=== PATIENT | male | born 1980 | race African-American/Black ===

== ENCOUNTER 2016-12-16 14:14 | Emergency (ER) | payer OTHER ==
[~2016-12-16] VITALS: Ht 185.4 cm; Wt 68.5 kg
[~2016-12-16 14:14] MED LIST: FLEXERIL10 MG PO; HYDROCODON-ACE1 EAC7; IBUPROFEN800 MG; LIDODERM 5% P1 PATCH TD; Levaquin PO; NAPROSYN500 MG PO; NO HOME; NO HOME MEDS; OXYCODONE HCL5 MG PO; PERCOCET 5/31 TABLET PO; PriLOSEC PO; ULTRAM50 MG PO
[2016-12-16] MEDS ORDERED: MOTRIN800 MG PO (17:58)
[2016-12-16] MEDS ORDERED: NORCO 10/3251 TABLET PO (17:58)
[2016-12-16 18:15] VITALS: BP 121/68
== END 2016-12-16 18:16 | disposition home or self-care (01) ==
LOC: EME 14:14
DX: S22.088A Other fracture of T11-T12 vertebra, initial encounter for closed fracture (principal); S39.002A Unspecified injury of muscle, fascia and tendon of lower back, initial encounter; W11.XXXA Fall on and from ladder, initial encounter; Y93.H9 Activity, other involving exterior property and land maintenance, building and construction; Z53.29 Procedure and treatment not carried out because of patient's decision for other reasons; Z87.891 Personal history of nicotine dependence
CPT/HCPCS: 72100; 99281; 99283; J3010

== ENCOUNTER 2016-12-28 14:29 | Emergency (ER) | payer OTHER ==
[~2016-12-28] VITALS: Ht 185.4 cm; Wt 69.8 kg
[~2016-12-28 14:29] MED LIST changes: +MOTRIN800 MG PO; +NORCO 10/3251 TABLET PO
[2016-12-28] MEDS ORDERED: NAPROXEN500 MG PO (17:23)
[2016-12-28] MEDS ORDERED: LIDODERM 5% P1 PATCH TD (17:23)
[2016-12-28] MEDS ORDERED: FLEXERIL10 MG PO (17:23)
[2016-12-28] MEDS ORDERED: MOBIC7.5 MG PO (17:32)
[2016-12-28 17:33] VITALS: BP 122/76
== END 2016-12-28 17:35 | disposition home or self-care (01) ==
LOC: EME 14:29
DX: M54.6 Pain in thoracic spine (principal); W11.XXXA Fall on and from ladder, initial encounter
CPT/HCPCS: 72070; 99281; 99284; J1885

== ENCOUNTER 2017-03-13 03:36 | Emergency (ER) | payer SELFPAY ==
[~2017-03-13] VITALS: Ht 182.9 cm; Wt 66.9 kg
[~2017-03-13 03:36] MED LIST changes: +MOBIC7.5 MG PO; +NAPROXEN500 MG PO
[2017-03-13 04:04] LABS: EOSINOPHIL (%) 1.7 % (0-5); EOSINOPHIL COUNT 0.2 K/uL (0-0.3); HEMATOCRIT 51.4 % (38.0-50.0); IMMATURE GRANULOCYTE (%) 0.3 % (0.0-0.7); LYMPHOCYTE COUNT 3.8 K/uL (1.0-2.8); MCHC 33.9 G/DL (30.0-36.0); MCV 88.6 FL (86-99); MEAN PLAT.VOLUME 10.2 uM^3 (9.0-12.4); MONOCYTE (%) 7.8 % (3-12); MONOCYTE COUNT 0.9 K/uL (0-0.8); NEUTROPHIL (%) 55.3 % (45-76); PLATELET COUNT 292 K/uL (156-360); RBC DIS.WIDTH-CV 13.6 % (11.8-14.6); RBC DIS.WIDTH-SD 43.8 % (39-53); WHITE BLOOD COUNT 10.9 K/uL (4.1-10.2)
[2017-03-13 04:51] LABS: CHLORIDE 109 mEq/L (99-109); POTASSIUM 3.9 mEq/L (3.7-5.4); SODIUM 140 mEq/L (136-147)
[2017-03-13 04:53] LABS: GLUCOSE 84 mg/dL (70-99)
[2017-03-13 04:55] LABS: ANION GAP 13 MEQ/L (2-14); TOTAL BILIRUBIN 0.6 mg/dL (0.0-1.0)
[2017-03-13 04:57] LABS: ALKALINE PHOSPHATASE 71 IU/L (3-129); GFR ESTIMATE (CALCULATED) > 59 mL/min/
[2017-03-13 04:58] LABS: UREA NITROGEN (BUN) 14 mg/dL (9-23)
[2017-03-13 05:00] LABS: LIPASE 27 U/L (1.0-51.0)
[2017-03-13 05:29] LABS: ADD MIUA? NO; BILIRUBIN NEGATIVE; BLOOD NEGATIVE; COLOR YELLOW ((YELLOW)); GLUCOSE (STRIP) NEGATIVE; KETONES NEGATIVE; LEUKOCYTES NEGATIVE; NITRITE NEGATIVE; PROTEIN (STRIP) NEGATIVE; UCUL ADDED? NO; UROBILINOGEN 0.2 MG/DL (0.2-1.0)
[2017-03-13] MEDS ORDERED: ZOFRAN4 MG PO (05:32)
[2017-03-13 05:38] LABS: COCAINE PRESUMPTIVE POSITIVE (150 ng/mL); PHENCYCLIDINE NEGATIVE (25 ng/mL); THC CANNABINOIDS PRESUMPTIVE POSITIVE (50 ng/mL)
[2017-03-13 05:39] LABS: ADD MEDTOX COMMENT Y; AMPHETAMINE PRESUMPTIVE POSITIVE (500 ng/mL); BARBITURATES NEGATIVE (200 ng/mL); BENZODIAZEPINES NEGATIVE (150 ng/mL); INTERNAL CONTROLS VALID? YES; METHADONE NEGATIVE (200 ng/mL); METHAMPHETAMINE NEGATIVE (500 ng/mL); OPIATES (MORPHINE) NEGATIVE (100 ng/mL); OXYCODONE NEGATIVE (100 ng/mL); PROPOXYPHENE NEGATIVE (300 ng/mL); TRICYCLIC ANTIDEPRESSANTS NEGATIVE (300 ng/mL)
[2017-03-13 06:02] VITALS: BP 115/75
== END 2017-03-13 06:13 | disposition home or self-care (01) ==
LOC: EME 03:36
PROVIDERS: Emergency Medicine
DX: R10.30 Lower abdominal pain, unspecified (principal); F19.10 Other psychoactive substance abuse, uncomplicated; R11.2 Nausea with vomiting, unspecified; F10.99 Alcohol use, unspecified with unspecified alcohol-induced disorder; Z87.891 Personal history of nicotine dependence
CPT/HCPCS: 80053; 81003; 83605; 83690; 84999; 85025; 99281; 99285; J1630; J2405; J7030

== ENCOUNTER 2017-06-27 00:08 | Emergency (ER) | payer OTHER ==
[~2017-06-27] VITALS: Ht 185.4 cm; Wt 67.3 kg
[~2017-06-27 00:08] MED LIST changes: +ZOFRAN4 MG PO
[2017-06-27 01:09] LABS: EOSINOPHIL (%) 0.1 % (0-5); HEMATOCRIT 49.5 % (38.0-50.0); IMMATURE GRANULOCYTE (%) 0.3 % (0.0-0.7); IMMATURE GRANULOCYTE COUNT 0.1 K/uL; INSTRUMENT ABS NEUTROPHIL CT 11.9 K/uL; LYMPHOCYTE COUNT 1.5 K/uL (1.0-2.8); MCH 30.3 PG (29.0-34.0); MCHC 33.1 G/DL (30.0-36.0); MCV 91.3 FL (86-99); MONOCYTE (%) 6.3 % (3-12); MONOCYTE COUNT 0.9 K/uL (0-0.8); NEUTROPHIL (%) 82.8 % (45-76); NEUTROPHIL COUNT 11.9 K/uL (1.8-6.4); RBC DIS.WIDTH-CV 14.4 % (11.8-14.6); RED BLOOD COUNT 5.42 M/uL (4.00-5.50); WHITE BLOOD COUNT 14.4 K/uL (4.1-10.2)
[2017-06-27 01:26] LABS: CHLORIDE 111 mEq/L (99-109); POTASSIUM 4.3 mEq/L (3.7-5.4); SODIUM 141 mEq/L (136-147)
[2017-06-27 01:27] LABS: MAGNESIUM 2.2 mg/dL (1.3-2.7)
[2017-06-27 01:29] LABS: GLUCOSE 120 mg/dL (70-99)
[2017-06-27 01:30] LABS: ANION GAP 11 MEQ/L (2-14)
[2017-06-27 01:31] LABS: TOTAL BILIRUBIN 0.6 mg/dL (0.0-1.0); TROP-I INTERPRETATION NEGATIVE; TROPONIN-I < 0.01 ng/mL (0.0-0.30)
[2017-06-27 01:32] LABS: SERUM ETHYL ALCOHOL < 10 mg/dL
[2017-06-27 01:33] LABS: ALKALINE PHOSPHATASE 63 IU/L (3-129); GFR ESTIMATE (CALCULATED) > 59 mL/min/
[2017-06-27 01:34] LABS: UREA NITROGEN (BUN) 11 mg/dL (9-23)
[2017-06-27 01:36] LABS: LIPASE 24 U/L (1.0-51.0)
[2017-06-27 01:53] LABS: PLATELET COUNT UNABLE TO REPORT K/uL (156-360)
[2017-06-27 01:54] LABS: PLAT.SUFFICIENCY ADEQUATE
[2017-06-27 02:33] LABS: ADD MIUA? NO; BILIRUBIN NEGATIVE; BLOOD NEGATIVE; COLOR YELLOW ((YELLOW)); GLUCOSE (STRIP) NEGATIVE; KETONES 20; LEUKOCYTES NEGATIVE; NITRITE NEGATIVE; PROTEIN (STRIP) NEGATIVE; UROBILINOGEN 0.2 MG/DL (0.2-1.0)
[2017-06-27 02:42] LABS: AMPHETAMINE NEGATIVE (500 ng/mL); BARBITURATES NEGATIVE (200 ng/mL); BENZODIAZEPINES NEGATIVE (150 ng/mL); COCAINE NEGATIVE (150 ng/mL); INTERNAL CONTROLS VALID? YES; METHADONE NEGATIVE (200 ng/mL); METHAMPHETAMINE NEGATIVE (500 ng/mL); OPIATES (MORPHINE) NEGATIVE (100 ng/mL); OXYCODONE NEGATIVE (100 ng/mL); PHENCYCLIDINE NEGATIVE (25 ng/mL); PROPOXYPHENE NEGATIVE (300 ng/mL); THC CANNABINOIDS PRESUMPTIVE POSITIVE (50 ng/mL); TRICYCLIC ANTIDEPRESSANTS NEGATIVE (300 ng/mL)
[2017-06-27 02:43] LABS: ADD MEDTOX COMMENT Y
[2017-06-27 02:45] LABS: SPECIFIC GRAVITY 1.055 (1.000-1.030)
[2017-06-27] MEDS ORDERED: REGLAN10 MG PO (06:00)
[2017-06-27 06:14] VITALS: BP 139/77
== END 2017-06-27 06:15 | disposition home or self-care (01) ==
LOC: EME 00:08
PROVIDERS: Emergency Medicine
DX: R10.32 Left lower quadrant pain (principal); R11.2 Nausea with vomiting, unspecified; R00.1 Bradycardia, unspecified; I86.1 Scrotal varices; Z87.891 Personal history of nicotine dependence
CPT/HCPCS: 74177; 76870; 80053; 81003; 83690; 83735; 84484; 84999; 85025; 93005; 99281; 99285; G0480; J2405; J2765; J3010; J7030

== ENCOUNTER 2017-07-22 01:51 | Emergency (ER) | payer OTHER ==
[~2017-07-22] VITALS: Ht 185.4 cm; Wt 77.3 kg
[~2017-07-22 01:51] MED LIST changes: +REGLAN10 MG PO
[2017-07-22 02:24] LABS: HEMATOCRIT 48.6 % (38.0-50.0); MCH 30.1 PG (29.0-34.0); MCV 88.7 FL (86-99); MEAN PLAT.VOLUME 10.2 uM^3 (9.0-12.4); PLATELET COUNT 258 K/uL (156-360); RBC DIS.WIDTH-CV 13.8 % (11.8-14.6); RBC DIS.WIDTH-SD 44.8 % (39-53); RED BLOOD COUNT 5.48 M/uL (4.00-5.50); WHITE BLOOD COUNT 13.1 K/uL (4.1-10.2)
[2017-07-22 02:35] LABS: CHLORIDE 106 mEq/L (99-109); POTASSIUM 3.4 mEq/L (3.7-5.4); SODIUM 146 mEq/L (136-147)
[2017-07-22 02:37] LABS: GLUCOSE 133 mg/dL (70-99)
[2017-07-22 02:38] LABS: ANION GAP 13 MEQ/L (2-14)
[2017-07-22 02:39] LABS: TOTAL BILIRUBIN 0.3 mg/dL (0.0-1.0)
[2017-07-22 02:40] LABS: ALKALINE PHOSPHATASE 70 IU/L (3-129); GFR ESTIMATE (CALCULATED) > 59 mL/min/
[2017-07-22 02:42] LABS: UREA NITROGEN (BUN) 17 mg/dL (9-23)
[2017-07-22 02:44] LABS: LIPASE 45 U/L (1.0-51.0)
[2017-07-22] MEDS ORDERED: ZOFRAN4 MG PO (06:12)
[2017-07-22] MEDS ORDERED: CARAFATE1 GM PO (06:12)
[2017-07-22 06:27] VITALS: BP 116/72
== END 2017-07-22 06:28 | disposition home or self-care (01) ==
LOC: EME 01:51
DX: R10.9 Unspecified abdominal pain (principal); R11.10 Vomiting, unspecified; K21.9 Gastro-esophageal reflux disease without esophagitis; Z87.891 Personal history of nicotine dependence
CPT/HCPCS: 74177; 80053; 81003; 83690; 85027; 99281; 99285; J2765; J3010